=== PATIENT | female | born 1950 | race African-American/Black ===

== ENCOUNTER 2022-06-15 17:39 | Emergency (ER) | payer MEDICARE ==
[~2022-06-15] VITALS: Ht 177.8 cm; Wt 98.0 kg
[2022-06-15 17:45] VITALS: BP_SYST 208
[2022-06-15] MEDS ORDERED: cloNIDine HCL 0.2 MG TABLET PO ONE (19:15)
[2022-06-15] MEDS ORDERED: ENALAPRIL MALEATE (VASOTEC) Non-Formular 10 MG TABLET PO ONE (19:15)
[2022-06-15] MEDS ORDERED: cloNIDine HCL 0.1 MG TABLET ONE (19:32)
[2022-06-15 20:50] VITALS: BP_SYST 149
== END 2022-06-15 20:56 | disposition home or self-care (01) ==
LOC: SED 17:39
DX: R00.2 Palpitations (principal); I10 Essential (primary) hypertension; M54.2 Cervicalgia; F41.9 Anxiety disorder, unspecified; Z79.899 Other long term (current) drug therapy
CPT/HCPCS: 93005; 99283